=== PATIENT | male | born 1965 | race American Indian/Alaskan Native ===

== ENCOUNTER 2017-11-07 16:03 | Emergency (ER) | payer MEDICARE ==
--- NOTE | 2017-11-07 19:19 | Emergency Department Report ---
ED General Adult HPI - General Chief complaint: Extremity Problem,Nontraumatic Stated complaint: FOOT PAIN Time Seen by Provider: 11/07/17 18:34 Source: patient Mode of arrival: Ambulatory Limitations: No Limitations - History of Present Illness Initial comments: Patient presents to the emergency department with a chief complaint of right foot pain. Patient states that he has a knot underneath his right foot that has been present for quite some time now but the pain is gotten worse. Patient denies any injury or trauma to the area. Patient's no other complaints. -: Gradual Location: lower extremity Radiation: non-radiation Severity scale (0 -10): 5 Quality: sharp Consistency: constant Improves with: none Worsens with: none Associated Symptoms: denies other symptoms Treatments Prior to Arrival: none - Related Data Home Medications Medication Instructions Recorded Confirmed Last Taken Apriso 0.375 mg PO QID 02/08/16 02/08/16 02/06/16 Previous Rx's Medication Instructions Recorded Last Taken Type Ciprofloxacin HCl [Ciprofloxacin 500 mg PO BID #7 day 10/23/15 Unknown Rx TAB] Mesalamine [Asacol Hd] 800 mg PO BID #1 mo 10/23/15 02/06/16 Rx Omeprazole [PriLOSEC] 20 mg PO QDAY #30 capsule. 10/23/15 Unknown Rx Oxycodone HCl/Acetaminophen 1 each PO Q6HR PRN #30 tablet 10/23/15 Unknown Rx [Percocet 10/325 mg] Promethazine [Phenergan TAB] 25 mg PO Q6HR PRN #30 tab 10/23/15 Unknown Rx metroNIDAZOLE [Flagyl] 500 mg PO Q8HR #7 day 10/23/15 Unknown Rx predniSONE [Deltasone] 2 tab PO QDAY #1 mo 10/23/15 Unknown Rx Prednisone 20 mg PO DAILY #5 tablet 11/07/17 Unknown Rx traMADol [Ultram] 50 mg PO Q6HR PRN #20 tablet 11/07/17 Unknown Rx Allergies Allergy/AdvReac Type Severity Reaction Status Date / Time No Known Allergies Allergy Verified 02/08/16 13:54 ED Review of Systems ROS: Stated complaint: FOOT PAIN Other details as noted in HPI Comment: All other systems reviewed and negative Constitutional: denies: chills, fever Eyes: denies: eye pain, eye discharge, vision change ENT: denies: ear pain, throat pain Respiratory: denies: cough, shortness of breath, wheezing Cardiovascular: denies: chest pain, palpitations Endocrine: no symptoms reported Gastrointestinal: denies: abdominal pain, nausea, diarrhea Genitourinary: denies: urgency, dysuria Musculoskeletal: denies: back pain, joint swelling, arthralgia Skin: denies: rash, lesions Neurological: denies: headache, weakness, paresthesias Psychiatric: denies: anxiety, depression Hematological/Lymphatic: denies: easy bleeding, easy bruising ED Past Medical Hx - Past Medical History Previous Medical History?: Yes Hx Congestive Heart Failure: No Hx Diabetes: No Hx Asthma: No Hx COPD: No Hx HIV: No Additional medical history: CROHN'S DZ - Surgical History Past Surgical History?: No - Social History Smoking Status: Never Smoker Substance Use Type: None - Medications Home Medications: Home Medications Medication Instructions Recorded Confirmed Last Taken Type Ciprofloxacin HCl [Ciprofloxacin 500 mg PO BID #7 day 10/23/15 02/08/16 Unknown Rx TAB] Mesalamine [Asacol Hd] 800 mg PO BID #1 mo 10/23/15 02/08/16 02/06/16 Rx Omeprazole [PriLOSEC] 20 mg PO QDAY #30 capsule.dr 10/23/15 02/08/16 Unknown Rx Oxycodone HCl/Acetaminophen 1 each PO Q6HR PRN #30 tablet 10/23/15 02/08/16 Unknown Rx [Percocet 10/325 mg] Promethazine [Phenergan TAB] 25 mg PO Q6HR PRN #30 tab 10/23/15 02/08/16 Unknown Rx metroNIDAZOLE [Flagyl] 500 mg PO Q8HR #7 day 10/23/15 02/08/16 Unknown Rx predniSONE [Deltasone] 2 tab PO QDAY #1 mo 10/23/15 02/08/16 Unknown Rx Apriso 0.375 mg PO QID 02/08/16 02/08/16 02/06/16 History Prednisone 20 mg PO DAILY #5 tablet 11/07/17 Unknown Rx traMADol [Ultram] 50 mg PO Q6HR PRN #20 tablet 11/07/17 Unknown Rx ED Physical Exam - General Limitations: No Limitations General appearance: alert, in no apparent distress - Head Head exam: Present: atraumatic, normocephalic - Eye Eye exam: Present: normal appearance - ENT ENT exam: Present: mucous membranes moist - Neck Neck exam: Present: normal inspection - Rectal Rectal exam: Present: deferred - Extremities Exam Extremities exam: Present: other (patient has a fluid sac like mass on the dorsum aspect of his foot mass tender to palpation and mobile) - Back Exam Back exam: Present: normal inspection - Neurological Exam Neurological exam: Present: alert, oriented X3 - Psychiatric Psychiatric exam: Present: normal affect, normal mood - Skin Skin exam: Present: warm, dry, intact, normal color. Absent: rash ED Course Vital Signs 11/07/17 16:04 Temperature 98.9 F Pulse Rate 77 Respiratory 18 Rate Blood Pressure 147/69 O2 Sat by Pulse 99 Oximetry ED Medical Decision Making - Medical Decision Making Discussed plan of care with patient Patient states he is going to follow up with Dr. Renetta diaz is a foot ankle surgeon. Critical care attestation.: If time is entered above; I have spent that time in minutes in the direct care of this critically ill patient, excluding procedure time. ED Disposition Clinical Impression: Ganglion cyst Disposition: DC- TO HOME OR SELFCARE Is pt being admited?: No Does the pt Need Aspirin: No Condition: Stable Additional Instructions: Return if worse Prescriptions: Prednisone 20 mg PO DAILY #5 tablet traMADol [Ultram] 50 mg PO Q6HR PRN #20 tablet PRN Reason: Pain Referrals: JOE DHILLON MD [Primary Care Provider] - 3-5 Days Time of Disposition: 19:18
[2017-11-07 19:50] VITALS: BP 164/79
== END 2017-11-07 19:42 | disposition home or self-care (01) ==
LOC: ED 16:03
DX: M67.471 Ganglion, right ankle and foot (principal); K50.90 Crohn's disease, unspecified, without complications
CPT/HCPCS: 99282

== ENCOUNTER 2020-03-20 05:38 | Day surgery (SDC) | payer MEDICARE ==
[~2020-03-20 05:38] MED LIST: ceFAZolin/Water 2 GM/20 ML 2 GM/20 ML SYRINGE IV NR
[2020-03-20 06:54] LABS: Hematocrit 37.6 % (35.5-45.6); Hemoglobin 12.2 gm/dl (11.8-15.2); Mean Corpuscular HGB Conc 32 % (32-34); Mean Corpuscular Volume 78 fl (84-94); Platelet Count 203 K/mm3 (140-440); Red Cell Distribution Width 13.9 % (13.2-15.2)
--- NOTE | 2020-03-20 07:08 | Anesthesia Consultation ---
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
--- NOTE | 2020-03-20 07:11 | Anesthesia Consultation ---
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
--- NOTE | 2020-03-20 07:11 | Anesthesia Day of Surgery ---
Anesthesia Day of Surgery - Day of Surgery Patient Examined: Yes Patient H&P Reviewed: Yes Patient is NPO: Yes Beta Blockers: No
[2020-03-20] MEDS ORDERED: GENTAMICIN 40 MG/ML VIAL 2 ML ONE (07:16)
[2020-03-20] MEDS ORDERED: LIDOCAINE (1%) 10 MG/1 ML VIAL 20 ML MDV ONE (07:17)
[2020-03-20] MEDS ORDERED: BUPIVACAINE/PF (0.5%) 5 MG/1 ML 30 ML VIAL INFILTRATI ONE (07:17)
[2020-03-20] MEDS ORDERED: BUPIVACAINE/PF (0.25%) 2.5 MG/ML 30 ML VIAL INFILTRATI ONE ×2 (07:18→08:21)
[2020-03-20] MEDS ORDERED: fentaNYL 100 MCG/2 ML INJ ONE (07:30)
[2020-03-20] MEDS ORDERED: LIDOCAINE MPF (2%) 20 MG/1 ML VIAL 5 ML ONE (07:30)
[2020-03-20] MEDS ORDERED: propofoL 200 MG/20 ML VIAL IV ONE ×2 (07:31→07:56)
[2020-03-20] MEDS ORDERED: KETAMINE/STERILE WATER 50 MG/ML SYRINGE ONE (07:39)
[2020-03-20] MEDS ORDERED: MIDAZOLAM 2 MG/2 ML INJ ONE (07:39)
[2020-03-20] MEDS ORDERED: MIDAZOLAM 2 MG/2 ML INJ IV NR (08:00)
[2020-03-20] MEDS ORDERED: LACTATED RINGERS 1,000 ML IV SCH (08:00)
[2020-03-20] MEDS ORDERED: ONDANSETRON 4 MG/2 ML INJ IV PRN (08:00)
[2020-03-20] MEDS ORDERED: HYDROmorphone 1 MG/1 ML INJ IV PRN ×2 (08:00)
[2020-03-20] MEDS ORDERED: BACITRACIN ZINC OINT 28.4 GM TP ONE ×2 (08:16→08:21)
[2020-03-20] MEDS ORDERED: LIDOCAINE (1%) 10 MG/1 ML VIAL 20 ML MDV INFILTRATI ONE (08:21)
[2020-03-20] MEDS ORDERED: GENTAMICIN 40 MG/ML VIAL 2 ML IV ONE (08:22)
[2020-03-20] MEDS ORDERED: SODIUM CHLORIDE 0.9% IRRIG SOLN 2000 ML IR ONE (08:38)
[2020-03-20 10:03] VITALS: BP 150/85
--- NOTE | 2020-03-20 10:45 | Post Anesthesia Evaluation ---
- Post Anesthesia Evaluation Patient Participated: Yes Airway Patent: Yes Stable Respiratory Function: Yes Nausea/Vomiting: No Temp > 96.8F: Yes Pain Manageable: Yes Adequeate Hydration: Yes Anesthesia Complications: No Block Receding Appropriately: Not Applicable Patient on Ventilator: No
--- NOTE | 2020-03-21 17:49 | Operative Report ---
PREOPERATIVE DIAGNOSIS: Unknown soft tissue mass, left foot. POSTOPERATIVE DIAGNOSIS: Unknown soft tissue mass, left foot. SURGICAL PROCEDURE: Excision of unknown soft tissue mass. TOURNIQUET: Pneumatic ankle tourniquet, left ankle. ESTIMATED BLOOD LOSS: Less than 10 mL. PROCEDURE IN DETAIL: The patient was brought into the operating room, placed on the operating table in supine position. Following intravenous sedation, the patient was given 2 grams of Ancef prophylactically. At this time, the foot in the medial arch area was cleansed with Betadine, alcohol and 12 mL of 1:1 mixture of 1% lidocaine plain plus 0.5% Marcaine plain was infiltrated into the affected site. At this time, the foot was evaluated and a pneumatic ankle tourniquet was placed 2-3 cm proximal to both the medial and lateral malleoli. At this time, the foot was then scrubbed, prepped and draped in the usual aseptic manner and the procedure was thus begun. At this time, after adequately cleansing the foot, an Esmarch was used to exsanguinate the foot to 250 mmHg and a lazy S incision was made after skin scribe was used to outline a 3 x 2 cm soft tissue mass, nonmobile in nature. A lazy S incision was made 6 cm in length. At this time with the use of a 10-blade, the incision was deepened with both sharp and blunt dissection and then deepened with a 15 blade with care being taken to protect all vital neurovascular structures of the foot. At this time, there was noted to be a fibrous mass noted at the medial plantar fascia nonmobile and was dissected and removed from the operative field to be sent to the laboratory for further identification. Deep cultures consistent with aerobic, anaerobic and fungal culture was thus performed. At this time, there was inspection of the wound and cautery was used to cauterize all bleeders in the base of the fibrous mass evacuation. At this time with the pulse lavage with gentamicin mix was thus used down into the affected area and it was thus closed deep with 3-0 Vicryl followed by 4-0 Vicryl and superficial closure was with both 3-0 and 4-0 Prolene. 1 mL of dexamethasone phosphate was infiltrated into the affected site. Area was dressed with bacitracin ointment, Adaptic and sterile compressive dressing. The patient tolerated the procedure and anesthesia well. Pneumatic ankle tourniquet was deflated. There was a prompt hyperemic response to all digits of the affected foot. The patient will be placed in a postoperative shoe, weightbearing to tolerance. The patient will be discharged home with both written and oral instructions. JOB# [id number] TLD/NTS
== END 2020-03-20 05:39 | disposition home or self-care (01) ==
LOC: OR 05:38
PROVIDERS: ATTEND Podiatrist Foot & Ankle Surgery
DX: M79.89 Other specified soft tissue disorders (principal); M72.2 Plantar fascial fibromatosis; D49.2 Neoplasm of unspecified behavior of bone, soft tissue, and skin; G60.8 Other hereditary and idiopathic neuropathies; F32.9 Major depressive disorder, single episode, unspecified; Z91.81 History of falling; Z83.3 Family history of diabetes mellitus; Z82.61 Family history of arthritis; Z79.899 Other long term (current) drug therapy; Z79.82 Long term (current) use of aspirin; Z87.891 Personal history of nicotine dependence; Z98.890 Other specified postprocedural states; Z86.73 Personal history of transient ischemic attack (TIA), and cerebral infarction without residual deficits
CPT/HCPCS: 28060; 36415; 85027; 87075; 87116; 88305; 88341; 88342; A4217; J0690; J1580; J2250; J2704; J3010; J3490; J7120; 88307

== ENCOUNTER 2020-05-13 13:01 | Outpatient (CLI) | payer MEDICARE ==
[2020-05-13 13:55] LABS: Alanine Aminotransferase 21 units/L (7-56); Albumin 4.4 g/dL (3.9-5); BUN/Creatinine Ratio 13; Blood Urea Nitrogen 10 mg/dL (9-20); Calcium 8.7 mg/dL (8.4-10.2); Hemolysis Index 8
== END 2020-05-13 13:02 | disposition home or self-care (01) ==
LOC: LAB 13:01
DX: R10.13 Epigastric pain (principal)
CPT/HCPCS: 36415; 80053; 83690